=== PATIENT | female | born 1955 | race Caucasian/White ===

== ENCOUNTER → 2018-02-08 | Outpatient (CLI) | payer BC ==
[2018-02-08 08:38] LABS: Basophils # (auto) 0.1 uL; Basophils % (auto) 0.8 % (0.0-2.0); Eosinophils # (auto) 0.2 uL; Eosinophils % (auto) 2.1 % (0.0-7.0); Hematocrit 44.4 % (36.0-46.0); Hemoglobin 14.4 g/dL (12.2-16.2); Lymphocytes # (auto) 1.7 uL; Lymphocytes % (auto) 23.8 % (10.0-50.0); Mean Corpuscular Hemoglobin 28.7 pg (28.0-32.0); Mean Corpuscular Hgb Conc. 32.5 g/dL (32.0-36.0); Mean Corpuscular Volume 88.4 fL (80.0-100.0); Monocytes # (auto) 0.6 uL; Monocytes % (auto) 8.7 % (0.0-12.0); Neutrophils # (auto) 4.7 uL; Neutrophils % (auto) 64.6 % (37.0-80.0); Nucleated Red Blood Cells % 0.1 %; Platelet Count (auto) 234 10^3/uL (140-450); Red Blood Cells 5.02 10^6/uL (4.0-5.20); Red Cell Distribution Width 14.9 % (11.8-14.3); White Blood Cell 7.3 10^3/uL (4.4-10.8)
[2018-02-08 09:06] LABS: Albumin 3.9 g/dL (3.4-5.0); Potassium 3.7 mmol/L (3.5-5.1)
[2018-02-08 09:14] LABS: BUN/Creatinine Ratio 25.4; Bilirubin, Total 1.4 mg/dL (0.2-1.0); Calcium 8.6 mg/dL (8.5-10.1); Total Protein 7.2 g/dL (6.4-8.2)
== END | disposition home or self-care (01) ==
LOC: LAB 07:32
PROVIDERS: ATTEND Physician Assistant
DX: Z00.01 Encounter for general adult medical examination with abnormal findings (principal); I10 Essential (primary) hypertension; E66.8 Other obesity; Z86.39 Personal history of other endocrine, nutritional and metabolic disease
CPT/HCPCS: 36415; 80053; 80061; 84443; 85025

== ENCOUNTER → 2019-09-07 | Outpatient (CLI) | payer BC ==
[2019-09-07 08:02] LABS: Basophils # (auto) 0.1 10 ^3/uL (0-0.2); Eosinophils # (auto) 0.2 10 ^3/uL (0-0.8); Eosinophils % (auto) 3.2 % (0.0-7.0); Hematocrit 42.1 % (36.0-46.0); Hemoglobin 13.9 g/dL (12.2-16.2); Lymphocytes # (auto) 1.5 10 ^3/uL (0.4-5.4); Lymphocytes % (auto) 21.2 % (10.0-50.0); Mean Corpuscular Hemoglobin 29.1 pg (28.0-32.0); Mean Corpuscular Volume 88.4 fL (80.0-100.0); Monocytes # (auto) 0.6 10 ^3/uL (0-1.3); Monocytes % (auto) 8.2 % (0.0-12.0); Neutrophils # (auto) 4.8 10 ^3/uL (1.6-8.6); Neutrophils % (auto) 66.4 % (37.0-80.0); Nucleated Red Blood Cells % 0.1 %; Platelet Count (auto) 206 10^3/uL (140-450); Red Blood Cells 4.76 10^6/uL (4.0-5.20); Red Cell Distribution Width 15.4 % (11.8-14.3); White Blood Cell 7.3 10^3/uL (4.4-10.8)
[2019-09-07 08:54] LABS: Potassium 3.7 mmol/L (3.5-5.1)
[2019-09-07 09:03] LABS: Albumin 3.9 g/dL (3.4-5.0); Bilirubin, Total 1.6 mg/dL (0.2-1.0); Calcium 8.9 mg/dL (8.5-10.1); Total Protein 7.3 g/dL (6.4-8.2)
== END | disposition home or self-care (01) ==
LOC: LAB 07:40
PROVIDERS: ATTEND Physician Assistant
DX: Z00.00 Encounter for general adult medical examination without abnormal findings (principal); I10 Essential (primary) hypertension; E78.49 Other hyperlipidemia; E66.09 Other obesity due to excess calories; Z86.39 Personal history of other endocrine, nutritional and metabolic disease
CPT/HCPCS: 36415; 80053; 80061; 84443; 85025

== ENCOUNTER 2023-01-05 10:13 | Inpatient (IN) | payer BC, MEDICARE ==
[~2023-01-05] VITALS: Ht 162.6 cm; Wt 78.3 kg
[~2023-01-05 10:13] MED LIST: AMLO1TAB23 PO; ATOR20TA50 PO; LISI40TA16 PO
[2023-01-05 11:15] LABS: Basophils # (auto) 0 10 ^3/uL (0-0.2); Basophils % (auto) 0.5 % (0.0-2.0); Eosinophils # (auto) 0 10 ^3/uL (0-0.8); Eosinophils % (auto) 0.2 % (0.0-7.0); Hematocrit 44.1 % (36.0-46.0); Hemoglobin 14.6 g/dL (12.2-16.2); Lymphocytes # (auto) 1.2 10 ^3/uL (0.4-5.4); Mean Corpuscular Hemoglobin 28.2 pg (28.0-32.0); Mean Corpuscular Volume 85.5 fL (80.0-100.0); Monocytes # (auto) 1.6 10 ^3/uL (0-1.3); Monocytes % (auto) 14.9 % (0.0-12.0); Neutrophils % (auto) 73.4 % (37.0-80.0); Red Blood Cells 5.16 10^6/uL (4.0-5.20); White Blood Cell 10.9 10^3/uL (4.4-10.8)
[2023-01-05 11:34] LABS: Alanine Aminotransferase 20 U/L (7-40); Albumin 3.9 g/dL (3.2-4.8); Alkaline Phosphatase 105 U/L (46-116); Anion Gap 14 (5-15); Aspartate Aminotransferase 45 U/L (13-40); BUN/Creatinine Ratio 21.8 (10.0-20.0); Blood Urea Nitrogen 19 mg/dL (9-23); Calcium 8.8 mg/dL (8.5-10.1); Carbon Dioxide 25 mmol/L (20-30); Chloride 99 mmol/L (98-107); Glucose 132 mg/dL (74-106); Potassium 3.7 mmol/L (3.5-5.1); Sodium 138 mmol/L (136-145)
[2023-01-05 11:35] LABS: Bilirubin, Total 1.6 mg/dL (0.2-1.0); Total Protein 6.5 g/dL (5.7-8.2)
[2023-01-05 12:14] LABS: Magnesium 1.7 mg/dL (1.6-2.6)
[2023-01-05] MEDS ORDERED: SODIUM CHLORIDE 0.9% 1,000 ML IV ONE ×2 (12:45)
[2023-01-05] MEDS ORDERED: NITROGLYCERIN 0.4 MG SL TAB SL PRN (13:45)
[2023-01-05] MEDS ORDERED: HYDROcodone-ACET 5/325MG TAB PO PRN (13:45)
[2023-01-05] MEDS ORDERED: MORPHINE SULFATE INJ 2 MG/ml SYRG IV PRN ×2 (13:45)
[2023-01-05] MEDS: ACETAMINOPHEN 325 MG TAB PO PRN (22:32)
[2023-01-05] MEDS: cefTRIAXone 1GM/50ML D5W 50 ML IV SCH (22:32)
[2023-01-05] MEDS: ONDANSETRON HCL 4 MG/2 ML VIAL IV PRN (22:32)
[2023-01-05] MEDS: SODIUM CHLORIDE 0.9% 1,000 ML IV SCH (22:34)
[2023-01-05] MEDS: metroNIDAZOLE 500MG/100ML 100 ML IV SCH ×2 (23:34→23:36)
[2023-01-06] MEDS: SODIUM CHLORIDE 0.9% 1,000 ML IV SCH ×3 (00:15→22:51)
[2023-01-06 00:56] LABS: Urine Bacteria NONE SEEN /hpf (None Seen); Urine Blood Negative /uL (Negative); Urine Clarity HAZY (Clear); Urine Color Yellow (Yellow); Urine Mucus FEW (None Seen); Urine Protein, UAD 1+ (Negative); Urine Specific Gravity 1.027 (1.001-1.035); Urine WBC 13 /hpf (0 - 5)
[2023-01-06 04:16] LABS: Basophils # (auto) 0.1 10 ^3/uL (0-0.2); Basophils % (auto) 0.6 % (0.0-2.0); Eosinophils # (auto) 0 10 ^3/uL (0-0.8); Eosinophils % (auto) 0.4 % (0.0-7.0); Hematocrit 42.4 % (36.0-46.0); Hemoglobin 13.9 g/dL (12.2-16.2); Lymphocytes # (auto) 1.5 10 ^3/uL (0.4-5.4); Lymphocytes % (auto) 16.1 % (10.0-50.0); Mean Corpuscular Hemoglobin 28.1 pg (28.0-32.0); Mean Corpuscular Hgb Conc. 32.8 g/dL (32.0-36.0); Mean Corpuscular Volume 85.8 fL (80.0-100.0); Monocytes # (auto) 1.3 10 ^3/uL (0-1.3); Monocytes % (auto) 13.7 % (0.0-12.0); Neutrophils # (auto) 6.5 10 ^3/uL (1.6-8.6); Neutrophils % (auto) 69.2 % (37.0-80.0); Nucleated Red Blood Cells % 0.1 %; Red Blood Cells 4.94 10^6/uL (4.0-5.20); Red Cell Distribution Width 14.9 % (11.8-14.3); White Blood Cell 9.4 10^3/uL (4.4-10.8)
[2023-01-06 08:10] VITALS: BP 125/67; PULSE 80; RESP 18; TEMP 97.9; O2SAT 94; O2SAT 98
[2023-01-06 09:00] VITALS: BP 125/67; PULSE 80; RESP 18; TEMP 97.9; O2SAT 94
[2023-01-06 09:02] LABS: Alanine Aminotransferase 16 U/L (7-40); Albumin 3.7 g/dL (3.2-4.8); Alkaline Phosphatase 90 U/L (46-116); Anion Gap 10 (5-15); Aspartate Aminotransferase 34 U/L (13-40); BUN/Creatinine Ratio 14.6 (10.0-20.0); Bilirubin, Total 1.1 mg/dL (0.2-1.0); Blood Urea Nitrogen 12 mg/dL (9-23); Calcium 8.6 mg/dL (8.5-10.1); Carbon Dioxide 24 mmol/L (20-30); Chloride 102 mmol/L (98-107); Glucose 108 mg/dL (74-106); Potassium 3.4 mmol/L (3.5-5.1); Sodium 136 mmol/L (136-145); Total Protein 6.4 g/dL (5.7-8.2)
[2023-01-06] MEDS: ONDANSETRON HCL 4 MG/2 ML VIAL IV PRN ×2 (09:50→16:04)
[2023-01-06] MEDS ORDERED: GASTROGRAFIN 120 ML SOL ONE (11:13)
[2023-01-06] MEDS ORDERED: FAMOTIDINE 20 MG TAB PO ONE (11:30)
[2023-01-06 11:43] LABS: Hepatitis B Surface Antigen Negative (Negative)
[2023-01-06 12:04] LABS: Hepatitis C Antibody Negative (Negative)
[2023-01-06] MEDS: cefTRIAXone 1GM/50ML D5W 50 ML IV SCH (13:29)
[2023-01-06] MEDS: amLODIPine BESYLATE 5 MG TAB PO SCH (16:05)
[2023-01-06] MEDS: ATORVASTATIN 20 MG TAB PO SCH (16:05)
[2023-01-06] MEDS: metroNIDAZOLE 500MG/100ML 100 ML IV SCH ×3 (16:05→22:49)
[2023-01-06 17:00] VITALS: BP 133/82; PULSE 77; RESP 18; TEMP 98; O2SAT 94
[2023-01-06 22:00] VITALS: BP 133/69; PULSE 90; RESP 17; TEMP 98.7; O2SAT 93
[2023-01-06] MEDS: FAMOTIDINE 20 MG TAB PO SCH (22:49)
[2023-01-07] MEDS: ACETAMINOPHEN 325 MG TAB PO PRN (00:45)
[2023-01-07] MEDS: ONDANSETRON HCL 4 MG/2 ML VIAL IV PRN ×2 (00:45→18:19)
[2023-01-07 05:00] VITALS: BP 136/76; PULSE 83; RESP 17; TEMP 98.3; O2SAT 92
[2023-01-07] MEDS: metroNIDAZOLE 500MG/100ML 100 ML IV SCH ×3 (06:07→22:50)
[2023-01-07] MEDS: SODIUM CHLORIDE 0.9% 1,000 ML IV SCH ×3 (06:08→20:20)
[2023-01-07] MEDS ORDERED: KETOROLAC TROMETH 30 MG/ML 1ML VIAL IV PRN (07:30)
[2023-01-07 07:56] LABS: Basophils # (auto) 0 10 ^3/uL (0-0.2); Basophils % (auto) 0.7 % (0.0-2.0); Eosinophils # (auto) 0.1 10 ^3/uL (0-0.8); Eosinophils % (auto) 1.5 % (0.0-7.0); Hemoglobin 12.3 g/dL (12.2-16.2); Lymphocytes # (auto) 1.2 10 ^3/uL (0.4-5.4); Lymphocytes % (auto) 17.6 % (10.0-50.0); Mean Corpuscular Hemoglobin 28.3 pg (28.0-32.0); Mean Corpuscular Hgb Conc. 33.2 g/dL (32.0-36.0); Mean Corpuscular Volume 85.4 fL (80.0-100.0); Monocytes # (auto) 1.1 10 ^3/uL (0-1.3); Monocytes % (auto) 15.9 % (0.0-12.0); Neutrophils # (auto) 4.3 10 ^3/uL (1.6-8.6); Neutrophils % (auto) 64.3 % (37.0-80.0); Red Blood Cells 4.33 10^6/uL (4.0-5.20); Red Cell Distribution Width 15.1 % (11.8-14.3); White Blood Cell 6.7 10^3/uL (4.4-10.8)
[2023-01-07 08:01] LABS: Alanine Aminotransferase 16 U/L (7-40); Alkaline Phosphatase 76 U/L (46-116); Anion Gap 8 (5-15); BUN/Creatinine Ratio 21.8 (10.0-20.0); Blood Urea Nitrogen 12 mg/dL (9-23); Calcium 7.9 mg/dL (8.5-10.1); Carbon Dioxide 26 mmol/L (20-30); Chloride 107 mmol/L (98-107); Glucose 87 mg/dL (74-106); Potassium 2.7 mmol/L (3.5-5.1); Sodium 141 mmol/L (136-145)
[2023-01-07 08:02] LABS: Albumin 3.1 g/dL (3.2-4.8); Aspartate Aminotransferase 29 U/L (13-40); Bilirubin, Total 0.8 mg/dL (0.2-1.0); Total Protein 5.4 g/dL (5.7-8.2)
[2023-01-07 09:00] VITALS: BP 148/78; PULSE 97; RESP 20; TEMP 98; O2SAT 93
[2023-01-07] MEDS: MAGNESIUM OXIDE 400 MG TAB PO ONE ×2 (09:30→10:26)
[2023-01-07] MEDS: POTASSIUM CHL 20 Meq TABLET PO ONE ×2 (09:30→10:26)
[2023-01-07] MEDS: cefTRIAXone 1GM/50ML D5W 50 ML IV SCH (10:14)
[2023-01-07] MEDS: amLODIPine BESYLATE 5 MG TAB PO SCH (10:15)
[2023-01-07] MEDS: FAMOTIDINE 20 MG TAB PO SCH ×2 (10:15→21:41)
[2023-01-07] MEDS: ATORVASTATIN 20 MG TAB PO SCH (10:15)
[2023-01-07] MEDS: POTASSIUM CHL 20MEQ/100ML 100 ML IV SCH ×3 (13:03→20:12)
[2023-01-07 13:13] VITALS: BP 141/78; PULSE 72; RESP 18; TEMP 98.1; O2SAT 97
[2023-01-07] MEDS: METOCLOPRAMIDE HCL 5MG/ml INJ 2ml VIAL IV SCH ×2 (13:46→21:40)
[2023-01-07 17:00] VITALS: BP 131/72; PULSE 88; RESP 18; TEMP 98.2; O2SAT 96
[2023-01-07 22:00] VITALS: BP 131/66; PULSE 78; RESP 18; TEMP 98.2; O2SAT 92
[2023-01-08] MEDS ORDERED: POTASSIUM CHL 20MEQ/100ML 100 ML IV ONE (00:15)
[2023-01-08] MEDS: POTASSIUM CHL 20MEQ/100ML 100 ML IV SCH (00:28)
[2023-01-08] MEDS: ONDANSETRON HCL 4 MG/2 ML VIAL IV PRN ×3 (01:54→20:23)
[2023-01-08 05:00] VITALS: BP 156/92; PULSE 91; RESP 17; TEMP 98.3; O2SAT 96
[2023-01-08] MEDS: METOCLOPRAMIDE HCL 5MG/ml INJ 2ml VIAL IV SCH ×3 (06:21→23:12)
[2023-01-08] MEDS: metroNIDAZOLE 500MG/100ML 100 ML IV SCH ×3 (06:22→23:12)
[2023-01-08] MEDS: SODIUM CHLORIDE 0.9% 1,000 ML IV SCH ×3 (06:24→19:15)
[2023-01-08 08:00] VITALS: PULSE 95; RESP 16
[2023-01-08 08:13] LABS: Hematocrit 38.2 % (36.0-46.0); Hemoglobin 12.5 g/dL (12.2-16.2); Mean Corpuscular Hgb Conc. 32.7 g/dL (32.0-36.0); Mean Corpuscular Volume 85.7 fL (80.0-100.0); Red Blood Cells 4.45 10^6/uL (4.0-5.20); Red Cell Distribution Width 14.9 % (11.8-14.3); White Blood Cell 6.9 10^3/uL (4.4-10.8)
[2023-01-08 08:26] LABS: Alanine Aminotransferase 18 U/L (7-40); Albumin 3.3 g/dL (3.2-4.8); Anion Gap 8 (5-15); Aspartate Aminotransferase 31 U/L (13-40); BUN/Creatinine Ratio 15.4 (10.0-20.0); Bilirubin, Total 0.8 mg/dL (0.2-1.0); Blood Urea Nitrogen 8 mg/dL (9-23); Calcium 8.1 mg/dL (8.5-10.1); Carbon Dioxide 24 mmol/L (20-30); Chloride 106 mmol/L (98-107); Glucose 78 mg/dL (74-106); Potassium 3.3 mmol/L (3.5-5.1); Sodium 138 mmol/L (136-145); Total Protein 5.7 g/dL (5.7-8.2)
[2023-01-08 08:43] LABS: Basophils % (manual) 0 (0.0-2.0); Blast Cells 0; Metamyelocytes % 0; Myelocytes % 0; Promyelocytes % 0; Reactive Lymphocytes 0
[2023-01-08 09:00] VITALS: BP 148/72; PULSE 74; RESP 18; TEMP 98.3; O2SAT 96
[2023-01-08 09:25] LABS: Lipase 178 U/L (12-53)
[2023-01-08 09:26] LABS: Alkaline Phosphatase 82 U/L (46-116); Magnesium 1.5 mg/dL (1.6-2.6)
[2023-01-08 10:03] LABS: Anisocytosis Slight; Band Neutrophils % (manual) 8; Eosinophils % (manual) 2 (0-7); Lymphocytes % (manual) 16 (10.0-50.0); Monocytes % (manual) 15 (0-12); Platelet Estimate Adequate
[2023-01-08] MEDS: ATORVASTATIN 20 MG TAB PO SCH (11:20)
[2023-01-08] MEDS: cefTRIAXone 1GM/50ML D5W 50 ML IV SCH (11:20)
[2023-01-08] MEDS: FAMOTIDINE 20 MG TAB PO SCH ×2 (11:20→23:12)
[2023-01-08] MEDS: amLODIPine BESYLATE 5 MG TAB PO SCH (11:21)
[2023-01-08 13:00] VITALS: BP 140/76; PULSE 87; RESP 14; TEMP 99; O2SAT 95
[2023-01-08] MEDS: MAGNESIUM SULFATE 1GM/100ML 100 ML IV SCH ×3 (13:00→17:01)
[2023-01-08] MEDS: POTASSIUM CHL 20 Meq TABLET PO ONE ×2 (14:00→15:36)
[2023-01-08 16:55] VITALS: BP 134/75; PULSE 84; RESP 18; TEMP 98.6; O2SAT 96
[2023-01-08 22:00] VITALS: BP 145/79; PULSE 93; RESP 18; TEMP 98.3; O2SAT 90
[2023-01-09] MEDS: SODIUM CHLORIDE 0.9% 1,000 ML IV SCH ×3 (03:07→16:48)
[2023-01-09] MEDS: METOCLOPRAMIDE HCL 5MG/ml INJ 2ml VIAL IV SCH ×3 (05:52→22:07)
[2023-01-09] MEDS: metroNIDAZOLE 500MG/100ML 100 ML IV SCH ×2 (05:53→14:22)
[2023-01-09 08:30] VITALS: BP 157/83; PULSE 96; RESP 20; TEMP 98.2; O2SAT 93
[2023-01-09] MEDS: cefTRIAXone 1GM/50ML D5W 50 ML IV SCH (09:24)
[2023-01-09] MEDS: ONDANSETRON HCL 4 MG/2 ML VIAL IV PRN ×2 (09:24→14:21)
[2023-01-09] MEDS: FAMOTIDINE 20 MG TAB PO SCH ×2 (09:25→22:07)
[2023-01-09] MEDS: amLODIPine BESYLATE 5 MG TAB PO SCH (09:25)
[2023-01-09] MEDS: ATORVASTATIN 20 MG TAB PO SCH (09:26)
[2023-01-09 13:00] VITALS: BP_SYST 123; BP_SYST 157; BP_DIAS 61; BP_DIAS 83; PULSE 89; PULSE 96; RESP 19; RESP 20; TEMP 98; TEMP 98.2; O2SAT 93; O2SAT 95
[2023-01-09 17:02] VITALS: BP 140/74; PULSE 92; RESP 21; TEMP 97.6; O2SAT 96
[2023-01-09 20:00] VITALS: RESP 18; O2SAT 95
[2023-01-09 22:00] VITALS: BP 147/93; PULSE 103; RESP 20; TEMP 99.5; O2SAT 95
[2023-01-09] MEDS ORDERED: METOCLOPRAMIDE HCL 5MG/ml INJ 2ml VIAL IV SCH (22:00)
[2023-01-10] MEDS: SODIUM CHLORIDE 0.9% 1,000 ML IV SCH ×4 (03:23→18:38)
[2023-01-10 05:00] VITALS: BP 140/90; PULSE 98; RESP 20; TEMP 99.1; O2SAT 96
[2023-01-10] MEDS: METOCLOPRAMIDE HCL 5MG/ml INJ 2ml VIAL IV SCH ×3 (05:36→22:31)
[2023-01-10 07:53] LABS: Basophils # (auto) 0 10 ^3/uL (0-0.2); Basophils % (auto) 0.6 % (0.0-2.0); Eosinophils # (auto) 0 10 ^3/uL (0-0.8); Eosinophils % (auto) 0.7 % (0.0-7.0); Hematocrit 39.3 % (36.0-46.0); Lymphocytes # (auto) 0.9 10 ^3/uL (0.4-5.4); Lymphocytes % (auto) 14.4 % (10.0-50.0); Mean Corpuscular Hemoglobin 28.3 pg (28.0-32.0); Mean Corpuscular Volume 85.9 fL (80.0-100.0); Monocytes % (auto) 16.8 % (0.0-12.0); Neutrophils # (auto) 4.2 10 ^3/uL (1.6-8.6); Neutrophils % (auto) 67.5 % (37.0-80.0); Red Blood Cells 4.58 10^6/uL (4.0-5.20); Red Cell Distribution Width 14.8 % (11.8-14.3); White Blood Cell 6.2 10^3/uL (4.4-10.8)
[2023-01-10 08:25] LABS: Alanine Aminotransferase 29 U/L (7-40); Alkaline Phosphatase 117 U/L (46-116); Anion Gap 10 (5-15); Carbon Dioxide 25 mmol/L (20-30); Chloride 101 mmol/L (98-107); Glucose 94 mg/dL (74-106); Potassium 2.9 mmol/L (3.5-5.1); Sodium 136 mmol/L (136-145)
[2023-01-10 08:27] LABS: Albumin 3.2 g/dL (3.2-4.8); Aspartate Aminotransferase 71 U/L (13-40); BUN/Creatinine Ratio 10.2 (10.0-20.0); Bilirubin, Total 0.8 mg/dL (0.2-1.0); Blood Urea Nitrogen < 5 mg/dL (9-23); Total Protein 5.5 g/dL (5.7-8.2)
[2023-01-10 08:30] VITALS: BP_SYST 160; BP_SYST 162; BP_DIAS 84; PULSE 19; PULSE 95; RESP 19; TEMP 98.2; O2SAT 92
[2023-01-10] MEDS: cefTRIAXone 1GM/50ML D5W 50 ML IV SCH (08:40)
[2023-01-10] MEDS ORDERED: POTASSIUM CHL 20 Meq TABLET PO ONE (09:30)
[2023-01-10] MEDS: ATORVASTATIN 20 MG TAB PO SCH (10:34)
[2023-01-10] MEDS: amLODIPine BESYLATE 5 MG TAB PO SCH (10:34)
[2023-01-10] MEDS: FAMOTIDINE 20 MG TAB PO SCH ×2 (10:34→22:17)
[2023-01-10] MEDS: ONDANSETRON HCL 4 MG/2 ML VIAL IV PRN (11:33)
[2023-01-10 12:38] VITALS: BP 146/80; PULSE 94; RESP 19; TEMP 98.4; O2SAT 94
[2023-01-10] MEDS ORDERED: POTASSIUM EFFERVESENT TAB 25 MEQ PO ONE ×2 (14:45)
[2023-01-10 16:30] VITALS: BP 136/81; PULSE 98; RESP 18; TEMP 98; O2SAT 96
[2023-01-10] MEDS ORDERED: MAGNESIUM OXIDE 400 MG TAB PO ONE (17:45)
[2023-01-10 20:15] VITALS: PULSE 94; RESP 18; O2SAT 96
[2023-01-10 21:50] VITALS: BP 145/75; PULSE 94; RESP 16; TEMP 98.6; O2SAT 96
[2023-01-10] MEDS: POTASSIUM CHL 20MEQ/100ML 100 ML IV SCH (22:41)
[2023-01-11] MEDS: POTASSIUM CHL 20MEQ/100ML 100 ML IV SCH (00:41)
[2023-01-11] MEDS: SODIUM CHLORIDE 0.9% 1,000 ML IV SCH ×3 (00:49→10:10)
[2023-01-11 05:23] VITALS: BP 143/75; PULSE 89; RESP 18; TEMP 98.6; O2SAT 97
[2023-01-11] MEDS: METOCLOPRAMIDE HCL 5MG/ml INJ 2ml VIAL IV SCH ×2 (05:33→16:18)
[2023-01-11 07:24] LABS: Alanine Aminotransferase 19 U/L (7-40); Albumin 2.3 g/dL (3.2-4.8); Alkaline Phosphatase 55 U/L (46-116); Anion Gap 9 (5-15); Aspartate Aminotransferase 45 U/L (13-40); Bilirubin, Total 0.5 mg/dL (0.2-1.0); Carbon Dioxide 23 mmol/L (20-30); Chloride 103 mmol/L (98-107); Glucose 72 mg/dL (74-106); Potassium 3.6 mmol/L (3.5-5.1); Sodium 135 mmol/L (136-145); Total Protein 3.9 g/dL (5.7-8.2)
[2023-01-11 07:27] LABS: BUN/Creatinine Ratio 17.9 (10.0-20.0); Blood Urea Nitrogen < 5 mg/dL (9-23); Hematocrit 36.9 % (36.0-46.0); Hemoglobin 12.7 g/dL (12.2-16.2); Mean Corpuscular Hemoglobin 29.2 pg (28.0-32.0); Mean Corpuscular Hgb Conc. 34.5 g/dL (32.0-36.0); Mean Corpuscular Volume 84.7 fL (80.0-100.0); Red Blood Cells 4.36 10^6/uL (4.0-5.20); Red Cell Distribution Width 15.1 % (11.8-14.3)
[2023-01-11 07:30] LABS: Calcium 5.9 mg/dL (8.5-10.1)
[2023-01-11] MEDS ORDERED: MET2I IM ×3 (07:45→07:46)
[2023-01-11] MEDS ORDERED: FAMO-12 PO (07:45)
[2023-01-11] MEDS ORDERED: CALCIUM W/VIT D (600MG/400IU) TAB PO ONE (07:45)
[2023-01-11 07:52] LABS: Band Neutrophils % (manual) 0; Basophils % (manual) 0 (0.0-2.0); Blast Cells 0; Metamyelocytes % 0; Myelocytes % 0; Promyelocytes % 0; Reactive Lymphocytes 0
[2023-01-11 08:30] VITALS: BP 157/89; PULSE 90; RESP 18; TEMP 98.2; O2SAT 92
[2023-01-11] MEDS: cefTRIAXone 1GM/50ML D5W 50 ML IV SCH (08:51)
[2023-01-11 09:00] VITALS: BP 157/89; PULSE 90; RESP 18; TEMP 98.2; O2SAT 92
[2023-01-11 09:50] VITALS: BP 157/89; PULSE 90; RESP 18; TEMP 98.2; O2SAT 92
[2023-01-11] MEDS: ATORVASTATIN 20 MG TAB PO SCH (10:08)
[2023-01-11] MEDS: amLODIPine BESYLATE 5 MG TAB PO SCH (10:08)
[2023-01-11] MEDS: FAMOTIDINE 20 MG TAB PO SCH (10:08)
[2023-01-11 11:29] VITALS: BP 138/78; PULSE 91; RESP 18; TEMP 98.3; O2SAT 94
[2023-01-11 13:00] VITALS: BP 138/78; PULSE 91; RESP 18; TEMP 98.3; O2SAT 94
[2023-01-11 14:10] LABS: Eosinophils % (manual) 1 (0-7); Lymphocytes % (manual) 16 (10.0-50.0); Monocytes % (manual) 16 (0-12); Platelet Estimate Decreased
== END 2023-01-11 18:44 | disposition home or self-care (01) | DRG 391 ==
LOC: ER 10:13 → OVERFLOW 13:39 → WEST WING 01-06 06:34
PROVIDERS: ADMIT Internal Medicine; ATTEND Internal Medicine
DX: K52.9 Noninfective gastroenteritis and colitis, unspecified (principal); K85.90 Acute pancreatitis without necrosis or infection, unspecified; N39.0 Urinary tract infection, site not specified; E86.0 Dehydration; I10 Essential (primary) hypertension; Z90.710 Acquired absence of both cervix and uterus; E87.6 Hypokalemia; E83.42 Hypomagnesemia; Z90.49 Acquired absence of other specified parts of digestive tract; Z60.2 Problems related to living alone
CPT/HCPCS: 36415; 71045; 74176; 74250; 78226; 80053; 81001; 82310; 83605; 83690; 83735; 83970; 84132; 84484; 85007; 85025; 85027; 86803; 87081; 87086; 87340; 93005; 96360; 97110; 97116; 97163; 97530; G0378; J0696; J2405; J3480; J3490